=== PATIENT | female | born 1950 | race African-American/Black ===

== ENCOUNTER 2018-11-08 11:08 | Emergency (ER) | payer BC, OTHER ==
[~2018-11-08] VITALS: Ht 160 cm; Wt 100.0 kg
[2018-11-08] MEDS ORDERED: KETOROLAC 30MG/ML VIAL IM ONE (15:00)
[2018-11-08 16:08] VITALS: BP 162/64
== END 2018-11-08 16:11 | disposition home or self-care (01) ==
LOC: ER 15:53
DX: J44.9 Chronic obstructive pulmonary disease, unspecified (principal); R05 Cough; I10 Essential (primary) hypertension; Z98.51 Tubal ligation status
CPT/HCPCS: 71045; 96372; 99283; J1885